=== PATIENT | female | born 1950 | race Caucasian/White ===

== ENCOUNTER 2016-07-11 05:27 | Day surgery (SDC) | payer MEDICAID, MEDICARE ==
[2016-07-11] VITALS (10 sets, daily range): BP systolic 117–160; BP diastolic 54–87; PULSE 99–116; RESP 13–20; O2SAT 92–97
[~2016-07-11] VITALS: Ht 162.6 cm; Wt 106.6 kg
[~2016-07-11 05:27] MED LIST: BENZ-12 PO; DULO30CA50 PO; HYG25 PO; LOSA100T29 PO; METF500T4 PO
[2016-07-11] MEDS ORDERED: Dexamethasone 4 mg/mL Inj ONE (05:28)
[2016-07-11] MEDS ORDERED: Glycopyrrolate 0.2 MG/ML 1mL Inj ONE (05:28)
[2016-07-11] MEDS ORDERED: Ondansetron 2 mg/mL 2 mL Inj ONE (05:28)
[2016-07-11] MEDS ORDERED: fentaNYL-PF 50 mCg/mL 2 mL Inj ONE (05:28)
[2016-07-11] MEDS ORDERED: Phenylephrine/NS-PF 100 mCg/mL 5 mL Syringe IVPUSH ONE (05:28)
[2016-07-11] MEDS ORDERED: Succinylcholine Chloride 20 mg/mL 5 mL Inj ONE (05:28)
[2016-07-11] MEDS ORDERED: Rocuronium 10 mg/mL 5 mL Inj ONE (05:28)
[2016-07-11] MEDS ORDERED: Neostigmine 1 mg/mL 10 mL Inj ONE (05:28)
[2016-07-11] MEDS ORDERED: Ketamine 10 mg/mL 20 mL Inj ONE (05:28)
[2016-07-11] MEDS ORDERED: Propofol 10,000 mCg/mL 20 mL Inj ONE (05:28)
[2016-07-11] MEDS ORDERED: CeFAZolin Inj 2 GM in IV Premix 1 EACH IV ONE (06:00)
[2016-07-11] MEDS: Lactated Ringer's 1,000 ML IV SCH ×2 (06:21→07:41)
[2016-07-11] MEDS ORDERED: Bupivacaine-MPF 0.25% 30 mL Inj INFILTRATE ONE (07:53)
[2016-07-11] MEDS ORDERED: HYDROcodone-APAP 5-325 mg Tablet PO PRN (08:30)
[2016-07-11] MEDS ORDERED: Bupivacaine-MPF 0.5% 30 mL Inj INFILTRATE ONE (08:58)
[2016-07-11] MEDS ORDERED: Lactated Ringer's 500 ML IV PRN (09:29)
[2016-07-11] MEDS ORDERED: Lactated Ringer's 1,000 ML IV SCH (09:29)
--- NOTE | 2016-07-11 09:29 | PCM.HPANE ---
Patient Data Date of Service: Jul 11, 2016 Surgeon Admitting Provider: Attending Provider:Cristopher Bose MD Primary Care Physician:Sarai Leon Other Provider:Raffi Zuniga Anesthesia Reason for Visit Lymphadenopathy Ht/WT & BMI Height (Feet): 5 Height (Inches): 4 Weight (Kilograms): 106.6 Body Mass Index 40.00 Allergies Coded Allergies: No Known Allergies (Unverified , 07/10/16) Past Anesthesia History Anesthesia History: Denies:: Abnormal Airway, Anesthesia Reactions, Difficult Intubation, Fam Anesthesia Reaction Diabetes History Hx Diabetes?: Yes Type of Diabetes: Type II Glycemic Control: Oral Medication Current Bedside Blood Glucose: 125 MRSA MRSA: No Medications Hypertension Medication: Yes Home Meds Incl Beta Nina: No Reported Medications Duloxetine 30 Mg Capsule.dr30 Mg PO HS Ref 0 07/10/16 Metformin 500 Mg [id number] Mg PO TID Ref 0 07/10/16 Losartan Potassium 100 Mg [id number] Mg PO DAILY 07/10/16 Chlorthalidone 25 Mg Eyzped50 Mg PO DAILY #30 TABLET 07/10/16 Discontinued Reported Medications Benzonatate (Tessalon Perle)100 Mg [id number] Mg PO TID PRN For Cough 07/10/16 History History of ENT Problems?: Yes HEENT History: Positive for:: Hearing Problem (major- no hearing aides) Sinus Problem (during seasonal allergy ) Denies:: Abnormal Airway Cataracts Difficult Intubation Dysphagia Glaucoma TMJ Teeth Condition: Broken Teeth Other HEENT Pertinent History: needs right eye surgery for macular degeneration- Hx of Heart Problems?: Yes Cardiovascular History: Positive for:: Hypertension Denies:: AICD Abdominal Aortic Aneurism Atrial Fibrillation Heart Murmur Irregular Heartbeat Pacemaker Peripheral Vascular Rheumatic Fever Hx of Respiratory Problem?: Yes Respiratory History: Denies:: Asthma COPD Emphysema Oxygen Administration Pneumonia Tuberculosis Use of C-PAP Machine (sleep study +, could not tolerate CPAP) Use of Inhalers / NEBS Hx Neurologic Problems?: Yes Neurological History: Positive for:: Headaches (with allergies) TIA (possible a few years ago, no residual ) Denies:: CVA Dizziness Multiple Sclerosis Parkinson's Disease Other Neurological Pertinent: diabetic neuropathy- foot pain Hx of GI Problems?: Yes Gastrointestinal History: Positive for:: Gall Bladder Disease (removed) Denies:: Cirrhosis Gastroesphageal Reflux Gastrointestinal Bleeding Heartburn Hepatitis Hiatal Hernia Liver Disease Hx of Problems?: No Genitourinary History: Denies:: Kidney Stones Urinary Tract Infection Female Hx: Denies:: Currently (tubal ) Problems with Breasts? Hx Musculoskeletal Problems?: Yes Musculoskeletal History: Positive for:: Osteoarthritis Denies:: Back Injury Fibromyalgia Joint Replacement Musculoskeletal Trauma Myasthenia Gravis Hx of Psycho/Social Problems?: No Psycho Social History: Denies:: Anxiety (stressed due to recent dx) Hx Depression Hx Surgeries?: Yes (tubal, tonsil, yomi) Hx Any Other Health Problems?: Yes Other History: Denies:: Cancer (current admission dx) Thyroid Disease History Blood Transfusions: Positive for:: Accept Blood Products? Denies:: Blood Transfusions Hx Diabetes: YesBedside Blood Glucose: 125 Hx Alcohol Use: Yes (not for last 3 weeks)Alcoholic Drinks Per Day: once weeklyHx Substance Use: NoHave You Smoked inLast 12 mo: No Stop/Bang Treated for Sleep Apnea?: Yes Do You Have a CPAP Machine?: No S-Snoring: Do You Snore Loudly: No T-Tired: feel tired, fatigued: Yes O-Obsered: Observed not breath: Yes P-Blood Pressure: treated: Yes B- Body Mass Index > 35 kg/m2: Yes A- Age over 50: Yes N- Neck Large Circumference: No G- Gender Male: No VELMA Total Score: 5 VELMA Category 1: Yes Risk Assessment Category Category 1A: Patient has history of documented sleep apnea, and HAS NOT received any narcotic, sedative or anesthesia administration during this stay. Category 1B: Patient has history of documented sleep apnea, and HAS received any narcotic , sedative or anesthesia administration during this stay Category 2: Patient has SUSPECTED Obstructive Sleep Apnea, and HAS received any narcotic , sedative or anesthesia administration during this stay. Category 3: Patient has SUSPECTED Obstructive Sleep Apnea and HAS NOT received narcotic, sedative or anesthesia administration during this stay. Category 4: Outpatient in Procedural Areas with known sleep apnea or who screen positive for High Risk via the STOP/BANG questionnaire. Exam Exam Vital Signs Vital Signs Date Time Temp Pulse Resp B/P Pulse Ox O2 Delivery O2 Flow Rate FiO2 07/11/16 06:08 36.8 99 16 160/72 97 Room Air General Appearance: Alert, Oriented X3, Cooperative HEENT/AIRWAY: MP 2 Lungs: Clear to Auscultation Heart: Exam Unremarkable Additional Information lied flat with no change in respiratory effort or pulse ox reading Meds/Labs/Diagnostics Admission Meds Current Medications Lactated Ringer's 1,000 ml @ 120 mls/hr Q8H20M IV Last administered on 07:41; Start 07/11/16 at 05:00; Stop 07/11/16 at 13:19 Cefazolin Sodium/ Dextrose/Premix (Ancef Inj / D5W 50mL/IV Premix) 50 ml @ 100 mls/hr PREOP ONCE IV Last administered on 07/11/16 08:37; Start 07/11/16 at 06:00; Stop 07/11/16 at 06:29; Status DC Bupivacaine HCl (Sensorcaine-MPF 0.5% Inj) 30 ml STK-MED ONCE INFILTRATE Last administered on 07/11/16 08:58; Start 07/11/16 at 08:58; Stop 07/11/16 at 08:59 ; Status DC Bedside Blood Glucose: 125 Plan Impression Patient chart reviewed, patient interviewed and anesthestic plan with risks, benefits, and alternatives discussed, and informed consent obtained. NPO Status: 0300 WATER ASA Physical Status: ASA3 Severe Disease Anesthetic Support Modalities: [place] Scope, Arterial Line Anesthetic Plan: GA Bene/Risks/Altern/Consents: Yes HP Complete Prior to Induction: Yes El Gibson MD Jul 11, 2016 09:29
[2016-07-11] MEDS ORDERED: EPHEDrine Sulfate 50 mg/mL Inj IVPUSH PRN (09:30)
[2016-07-11] MEDS ORDERED: Ondansetron 2 mg/mL 2 mL Inj IVPUSH PRN (09:30)
[2016-07-11] MEDS ORDERED: MetoCLOpramide 5 mg/mL 2 mL Inj IVPUSH PRN (09:30)
[2016-07-11] MEDS ORDERED: Dexamethasone 4 mg/mL Inj IVPUSH PRN (09:30)
[2016-07-11] MEDS ORDERED: Phenylephrine 10,000 mCg/mL Inj IVPUSH PRN (09:30)
[2016-07-11] MEDS ORDERED: Lactated Ringer's 1,000 ML IV ONE (09:43)
[2016-07-11] MEDS ORDERED: HYDR-4003 PO (09:48)
--- NOTE | 2016-07-11 09:51 | PCM.SURGPO ---
Immediate Operative Note Date of Surgery: Jul 11, 2016 Pre Operative Diagnosis Mediastinal Adenopathy Post Operative Diagnosis Mediastinal Adenopathy Procedure Cervical Mediastinoscopy with biopsies Surgeon and Guillotine Trimmer Surgeon: Cristopher Bose MD Assistants: Sukhdev Mendoza MD Findings Gross Adenopathy Complications There were no periprocedural complications identified. Surgical Specimen Removed: Yes Specimen sent to Pathology: Yes Anesthetic Administered: GA Grafts, Implants: None Output, Estimated Blood Loss: 2 Blood Admin during surgery: No Attending Statement Application Support Manager listed was medically necessary for the successful completion of the operation Cristopher Bose MD Jul 11, 2016 09:51
--- NOTE | 2016-07-11 11:59 | PCM.ANEP1 ---
Post Anesthesia Phase 1 PACU Phase 1 Assessment Date of Service: Jul 11, 2016 Vital Signs Vital Signs Date Time Temp Pulse Resp B/P Pulse Ox O2 Delivery O2 Flow Rate FiO2 07/11/16 11:05 102 16 117/54 92 Room Air 07/11/16 10:55 105 14 127/77 94 Nasal Cannula 2 07/11/16 10:40 102 16 122/70 96 Nasal Cannula 2 07/11/16 10:25 110 15 134/81 95 Nasal Cannula 3 07/11/16 10:15 113 13 138/81 95 Nasal Cannula 3 07/11/16 10:05 113 16 134/79 96 Simple Mask 10 07/11/16 10:00 116 13 136/85 95 Simple Mask 10 07/11/16 09:55 36.5 115 17 154/87 96 Simple Mask 10 07/11/16 06:08 36.8 99 16 160/72 97 Room Air Anesthetic Administered: GA Level of Alertness: Awake, talking Nausea or Vomiting: No Oxygen Delivery: Simple Mask Lungs: Clear to Auscultation El Gibson MD Jul 11, 2016 11:59
--- NOTE | 2016-07-11 15:34 | PCM.ANEP2 ---
Post Anesthesia Evaluation ASA/CMS Post Anesthesia VS in Patient's Normal Range?: Yes Resp Stable; Airway Patent?: Yes CV Function & Hydration Stable: Yes Mental Status Recovered?: Yes Pain control Satisfactory?: Yes N/V Control Satisfactory?: Yes El Gibson MD Jul 11, 2016 15:34
--- NOTE | 2016-07-11 16:35 | OP ---
[address] [address] OPERATIVE REPORT PATIENT: CHANTELLE MELLO : 1950 MR#: [id number] ADMIT: 07/11/2016 JOB ID: [id number] DATE OF SURGERY: 07/11/2016 PREOPERATIVE DIAGNOSIS(ES): Mediastinal lymphadenopathy. POSTOPERATIVE DIAGNOSIS(ES): Mediastinal lymphadenopathy. PROCEDURE PERFORMED: Cervical mediastinoscopy with biopsy. SURGEON: Cristopher Bose MD RUG TOUCH UP PAINTER: Sukhdev Mendoza MD COMPLICATIONS: None. CONDITION: Stable. INDICATIONS: The patient is a 65-year-old lady who developed some cough in February of 2016 that was worse than usual, prompting her to discuss it with her primary provider, Sarai Leon, who got a chest x-ray which ultimately led to the diagnosis of mediastinal adenopathy. She had a CT chest with contrast on June 04, 2016, which showed marked mediastinal lymphadenopathy with right paratracheal bairon mass measuring up to 4.5 cm. He was seen by Dr. Rosas who sent her to me for surgical consultation for tissue biopsy. After discussing the risks, benefits, and alternatives, she is here today for the mediastinoscopy. DESCRIPTION OF PROCEDURE: She was placed in a supine position, underwent induction of general anesthesia, and had a right radial arterial catheter placed. The neck and chest were prepped and draped in the usual sterile fashion. Surgical time-out was undertaken using safety checklist, and all were in agreement. I began by making a collar incision a couple fingerbreadths above the jugular notch and developed subplatysmal planes superiorly and inferiorly. I then identified the midline between the strap muscles and the strap muscles, dissecting directly onto the trachea. After getting into the pretracheal space, I developed a plane bluntly into the mediastinum posterior to the innominate artery. We then placed a video mediastinoscope and were able to immediately identify enlarged lymph nodes on the right side. I then dissected one of these obviously enlarged lymph nodes sufficiently to make sure it is not a vascular structure, aspirated with a needle, again making sure that this is not a vascular structure, and then took multiple biopsies with forceps, getting adequate samples for flow cytometry and permanent pathology. After that, I achieved hemostasis with a combination of electrocautery and pressure with vaginal packing gauze, and we then removed the packing, and after ensuring good hemostasis, removed mediastinoscope and closed the strap muscles with interrupted 3-0 Vicryl along with the platysma and then closed the skin with 4-0 Monocryl subcuticular suture. Steri-Strips and sterile dressing were applied. Patient was recovered from anesthesia and was taken to the recovery room in a stable condition.
--- NOTE | 2016-07-16 11:04 | PATH ---
SURGICAL PATHOLOGY Attending Physician:Cristopher Bose MD CASE STATUS: Signed Out PATIENT NAME: CHANTELLE MELLO PID: [id number] : 1950 DATE COLLECTED:07/11/2016 20:21 SPECIMEN: Lymph Node, Biopsy CLINICAL HISTORY: LYMPHADENOPATHY 1). 4R LYMPH NODE FOR PERM. FINAL DIAGNOSIS: Lymph Node, Designated 4R, Biopsy: Dense fibrous connective tissue with abundant noncaseating granulomas. Negative for malignancy. ICD10 R59.0 NOTE: In the appropriate clinical context, the presence of extensive noncaseating granulomas would be compatible with sarcoidosis. AFB and GMS stains will be performed, and these results will be reported in an addendum. Please note that the corresponding flow cytometric analysis showed no abnormal lymphocyte population. Flow Interpretation: [id number] 4R lymph node biopsy: No abnormal lymphocyte population; see Comment. Flow Comment: Lymphocytes consist mostly of small to intermediate cells based upon the forward angle versus side-scatter plot. Lymphocytes consist of 70% mature T cells with a CD4/CD8 ratio of 3.1 and 25% polyclonal B cells with a kappa/lambda ratio of 2.1. No aberrant antigen expression or abnormal loss of antigens is identified on T or B cells. In summary, the flow cytometric analysis does not demonstrate an abnormal T or B lymphocyte population and thus provides no evidence to support a lymphoproliferative disorder of T or B cells. Please note that this flow cytometric analysis cannot detect Hodgkin lymphoma so that it is important to correlate the negative flow cytometric findings with the biopsy morphology and immunohistochemistry, if necessary, in order to provide a definitive interpretation and final diagnosis. GROSS DESCRIPTION: The specimen is received in formalin, labeled with the patient's name and "4R lymph node (perm)". It consists of a 0.7 x 0.7 x 0.4 cm, dupont-brown rubbery lymph node. The specimen is bisected to reveal a homogeneous dupont-brown cut surface and entirely submitted in cassette A. (RENNY:[id number]) MICRO DESCRIPTION: Sections of the biopsy tissue show dense fibrous connective tissue containing an abundance of noncaseating granulomas. There are no granulomas with caseating necrosis. There is no evidence of a metastatic malignancy or of an atypical lymphoid infiltrate. ICD-9 CODES: CPT CODES: 1: 87756, 13248, 64913 PROCEDURE/ADDENDA: Addendum SPI Addendum Diagnosis The purpose of this addendum is to report the results of the AFB and GMS stains performed on the lymph node biopsy. Both stains are negative for organisms. Addendum Comment AFB and GMS stains negative for organisms. Electronically Signed Out Trevon Prado MD, PhD Electronically Signed Out Trevon Prado MD, PhD [facility] [address], [place] [address] Technical component performed at [facility], [facility] [address], [place], [address]
== END 2016-07-11 23:59 | disposition home or self-care (01) ==
LOC: SAS 05:27
PROVIDERS: ATTEND Student in an Organized Health Care Education/Training Program
DX: R59.1 Generalized enlarged lymph nodes (principal); I10 Essential (primary) hypertension; E11.9 Type 2 diabetes mellitus without complications; G47.30 Sleep apnea, unspecified; R01.1 Cardiac murmur, unspecified; E66.9 Obesity, unspecified; Z68.37 Body mass index [BMI] 37.0-37.9, adult; Z79.84 Long term (current) use of oral hypoglycemic drugs
CPT/HCPCS: 39401; 86850; 88184; 88185; 88305; 88312; J0330; J0690; J1100; J2250; J2370; J2405; J2710; J3010; J7120